=== PATIENT | male | born 1980 | race Two or more races ===

== ENCOUNTER 2024-09-16 03:16 | Emergency (ER) | payer MEDICAID, SELFPAY ==
[2024-09-16 03:19] VITALS: BP 131/88; PULSE 110; PULSE 118; RESP 15; RESP 20; TEMP 37.2; O2SAT 95; O2SAT 97
[2024-09-16 03:23] VITALS: BMI 30.1
--- NOTE | 2024-09-16 03:33 | PD.EDSEIZ ---
ED Seizures RME/HPI General Chief Complaint: Seizure Stated Complaint: SEIZURES Time Seen by Provider: 09/16/24 03:33 Arrival date/time: 09/16/24 03:16 RME / HPI RME / HPI Narrative: This section includes all my notes and documentations, including HPI, PE, and ED course. Danny Xie MD HPI: 44-year-old male here to be evaluated after a seizure at home just prior to arrival. Had seizure several years ago. No medications for seizures. No injury with the seizure today it occurred in bed. described foaming in the mouth, no responsiveness, and generalized shaking for several minutes. EMS reported postictal state. No other complaints. ROS: All negative except as documented in HPI. Physical Exam: General: In postictal state. Eyes: Conjunctivae and lids clear. EOMI. PERRL. ENT: No nasal congestion. Neck: Supple. No carotid bruit. No JVD. Heart: RRR. Lungs: No respiratory distress. Good air movement. No rhonchi, wheezing, rales. Abdomen: Soft and nontender. Legs: No clubbing, cyanosis, edema. Skin: Warm and dry. Neuro: Cranial Nerves II-XII grossly intact. No peripheral motor deficits. Musculoskeletal: All major joints and bones are not tender with no limited ROM. I reviewed all diagnostic test results. My interpretation of the EKG is sinus rhythm with no acute ST?T changes. Blood tests and urine tests unremarkable. Head CT pending. At this point, diagnoses include seizure. Treatment here included IV fluid and Keppra 2000 mg IV. When patient returned to normal baseline mental state, he complained of severe headache. Toradol and morphine ordered. At 6 AM on 09/16/24, the care of the patient was transferred to Dr. CORTEZ. Danny Xie MD Related Data Home Medications ?Medication ?Instructions ?Recorded ?Confirmed No Known Home Medications 03/31/18 03/31/18 Allergies Allergy/AdvReac Type Severity Reaction Status Date / Time No Known Allergies Allergy Verified 09/16/24 03:19 Course Quality Measures none Orders Category Date Time Status EKG (ED ONLY) *Do not use* NOW Care 09/16/24 03:34 Completed Saline [Insert IV] NOW Care 09/16/24 03:34 Active Straight [In and Out Catheter] X1 Care 09/16/24 03:[address] head/brain wo con Stat Exams 09/16/24 03:34 Ordered EKG (ED Only) Stat Exams 09/16/24 03:34 Draft Alcohol, Blood Medical Stat Lab 09/16/24 03:49 Completed CBC Stat Lab 09/16/24 03:49 Completed CMP [Comprehensive Metabolic Panel] Stat Lab 09/16/24 03:49 Completed Drug Screen,Urine Stat Lab 09/16/24 03:48 Completed Free T4 (Free Thyroxine) Stat Lab 09/16/24 03:49 Completed Magnesium Stat Lab 09/16/24 03:49 Completed TSH [Thyroid Stimulating Hormone] Stat Lab 09/16/24 03:49 Completed Troponin I Stat Lab 09/16/24 03:49 Completed UA, C/S IF [Urinalysis, C/S if Indicated] Stat Lab 09/16/24 03:48 Completed Ketorolac Inj [Toradol Inj] Med 09/16/24 04:33 Once 30 mg IVP X1 ONE Morphine Inj Med 09/16/24 04:33 Once 4 mg IVP X1 ONE Ondansetron Inj [Zofran Inj] Med 09/16/24 04:33 Once 4 mg IV X1 ONE Sodium Chloride 0.9% 1000 ml [Ns] 1,000 ml Med 09/16/24 03:34 Discontinued IV 999 mls/hr levETIRAcetam INJ [Keppra Inj] Med 09/16/24 03:45 Discontinued 2,000 mg IVP X1 ONE Vital Signs Vital signs: Vital Signs Temperature 99.0 F 09/16/24 03:19 Pulse Rate 110 H 09/16/24 03:19 Respiratory Rate 15 09/16/24 03:19 Blood Pressure 131/88 H 09/16/24 03:19 Pulse Oximetry (%) 95 09/16/24 03:19 Oxygen Delivery Method Room Air 09/16/24 03:19 Seizure Patient data External records reviewed:: None Clinical information provided by:: patient, EMS and spouse Social determinants that could affect healthcare access:: none Patient has the following chronic illnesses:: Seizures in the past How is presenting disease/condition affected by chronic disease/condition?: exacerbated by Evaluation data The following diagnostics were reviewed and interpreted by me:: lab results and EKG tracing(s) Lab and/or radiology exams considered but not ordered:: None Interpretation Summary: Complete diagnostics pending Medications / Prescriptions Medications or Prescriptions considered but not ordered:: None Medication administrations:: Medication Administration History Ketorolac Tromethamine (Ketorolac Inj 30 Mg/Ml Vial) 30 mg IVP X1 ONE Stop: 09/16/24 04:34 Morphine Sulfate (Morphine Sulf Inj 10 Mg/Ml Vial) 4 mg IVP X1 ONE Stop: 09/16/24 04:34 Ondansetron HCl (Ondansetron Inj 2 Mg/Ml Inj 2 Ml) 4 mg IV X1 ONE; Protocol Stop: 09/16/24 04:34 Discontinued Medications Sodium Chloride (Ns) 1,000 mls @ 999 mls/hr IV .Q1H1M ONE Stop: 09/16/24 04:34 Last Admin: 09/16/24 03:51 Dose: 999 mls/hr Documented By: IVÁN Levetiracetam (Levetiracetam Inj 100 Mg/Ml Vial 5ml) 2,000 mg IVP X1 ONE Stop: 09/16/24 03:46 Last Admin: 09/16/24 03:52 Dose: 2,000 mg Documented By: EE IV fluid and Keppra and Zofran and Toradol and morphine Consultations Consultation(s) initiated? (list below): No Diagnosis Seizure Differential Diagnosis: intractable seizure disorder, focal seizure, generalized seizure, new onset seizure, epileptic seizure and status epilepticus Most likely diagnosis given after review of the tests above:: Seizure Admission Indicated Admission indicated?: not indicated Explain why admission is indicated or not indicated:: Complete diagnostics pending Admission Request Was there a request for admission?: No Disposition Plan Disposition Plan: other (specify) (Care of the patient was transferred to Dr. CORTEZ.) Discharge Plan Prescriptions/Referrals Prescriptions/Med Rec: No Action No Known Home Medications Referrals: Marry Little PA-C [Primary Care Provider] - In 1 week Problem List Clinical Impression: Seizure Patient/Caregiver Discharge Instructions Print Language: Occitan
--- NOTE | 2024-09-16 03:34 | EKG_ITS ---
[facility] Test Date: 2024-09-16 Pat Name: DRU FUCHS Department: Room: - Gender: Male Intelligence Applications: : 1980 Requested By: Danny Lyles Order Number: [id number] Reading MD: Danny Lyles Measurements Intervals [place] Rate: 86 P: 64 GA: 153 QRS: 46 QRSD: 86 T: 40 QT: 349 QTc: 418 Interpretive Statements SINUS RHYTHM POSSIBLE RIGHT VENTRICULAR CONDUCTION DELAY [RSR (QR) IN V1/V2] No previous ECG available for comparison /store/S0/[id number].pdf
--- NOTE | 2024-09-16 03:34 | XR_ITS ---
Examination: CT brain head without contrast. 2-D sagittal coronal reconstructions Date and time of exam:September 16, 2024 at 0647 hours Comparison March 31, 2018 INDICATIONS: Seizure today with headache, history seizures CTDI: vol (mGy):52.3 DLP: (mGycm):1052 Technique: Multiple CT axial sections of the brain have been obtained, 5 mm slice thickness. Contrast has not been administered. 2-D sagittal, coronal reconstructions have been obtained Low dose protocols were performed. One or more of the following dose reduction techniques were used; automated exposure control, adjustment of the mA and/or KV according to patient size, use of iterative reconstruction technique. Findings: No significant ventricular enlargement. Again noted numerous subcentimeter cerebral calcifications Intra-axial or extra-axial hemorrhage density is not seen. No mass effect or midline shift Basal cisterns are not remarkable. Fourth ventricle is midline. Cranial vault intact. Impression: Negative for acute hemorrhage, mass effect or midline shift Again noted numerous subcentimeter cerebral calcifications, differential would include cysticercosis Consider repeat brain MRI follow-up, seizure protocol, to compare with the May 03, 2022 exam
[2024-09-16] MEDS: SODIUM CHLORIDE 0.9% 1000 ML 1,000 ML 999 ML IV (03:51)
[2024-09-16] MEDS: levETIRAcetam INJ 100 MG/ML VIAL 5ML 2000 MG IVP (03:52)
[2024-09-16 03:54] LABS: Basophils # (Auto) 0.1 Thou/mm3 (0.0-0.2); Basophils % (Auto) 1 % (0-2.5); Eosinophils # (Auto) 0.3 Thou/mm3 (0.0-0.5); Eosinophils % (Auto) 2 % (0-10); Hematocrit 48.1 % (41.0-53.0); Hemoglobin 16.9 g/dL (13.5-16.0); Immature Granulocytes % (Auto) 2 % (0-0); Immature Granulocytes Auto 0.25 Thou/mm3 (0.00-0.00); Lymphocytes # (Auto) 7.3 Thou/mm3 (1.0-4.8); Lymphocytes % (Auto) 53 % (10-50); Mean Corpuscular HGB Conc 35.1 g/dl (31.0-37.0); Mean Corpuscular Hemoglobin 29.5 pg (25.0-35.0); Mean Corpuscular Volume 84 fL (80-100); Monocytes # (Auto) 0.7 Thou/mm3 (0.0-0.8); Monocytes % (Auto) 5 % (0-12); Neutrophils # (Auto) 5.3 Thou/mm3 (1.8-7.7); Neutrophils % (Auto) 38 % (37-80); Nucleated Red Blood Cell % 0 /100 WBC (0); Platelet Count 209 Thou/mm3 (140-440); RDW Standard Deviation 39.7 fL (35.1-43.9); Red Blood Count 5.73 Miln/mm3 (4.50-5.90); White Blood Count 13.8 Thou/mm3 (3.8-10.6)
[2024-09-16 04:19] LABS: Collection Type, Urine Clean Catch
[2024-09-16 04:24] LABS: Bilirubin,Urine Negative (Negative); Blood,Urine Trace (Negative); Clarity,Urine Clear (Clear/Hazy); Color,Urine Colorless (Lt Yel-Yel); Culture Indicated,Urine Not Indicated; Glucose, Urine Negative (Negative); Ketones,Urine Negative (Negative); Leukocyte Esterase,Urine Negative (Negative); Nitrite,Urine Negative (Negative); Protein,Urine Trace (Neg - Trace); RBC,Urine 1 /hpf (0-3); Specific Gravity,Urine 1.012 (1.001-1.035); Squamous Epithelial Cell,Urine < 1 /hpf (0-5); Urobilinogen,Urine Negative mg/dL (0.0-1.0); WBC,Urine < 1 /hpf (0-5)
[2024-09-16 04:24] LABS: Alanine Aminotransferase 17 U/L (10-49); Albumin, Serum 4.7 gm/dL (3.5-5.0); Albumin/Globulin Ratio 1.5 (1.2-2.2); Alcohol, Blood Medical < 3.0 mg/dL (0-10.0); Alkaline Phosphatase 105 U/L (46-116); Anion Gap 20 (7-16); Aspartate Amino Transferase 25 U/L (0-34); BUN/Creatinine Ratio 11 Ratio (12-20); Bilirubin,Total 0.5 mg/dL (0.3-1.2); Blood Urea Nitrogen 12 mg/dL (9-23); Calcium 9.2 mg/dL (8.3-10.6); Calcium (Corrected) 9.2 mg/dL (8.5-10.1); Carbon Dioxide 15.8 mMol/L (20.0-31.0); Chloride 102 mMol/L (98-107); Creatinine (Component) 1.1 mg/dL (0.6-1.3); Estimated Creatinine Clearance 97.2 mL/min (>60); Free T4 (Free Thyroxine) 1.16 ng/dL (0.89-1.76); Globulin 3.1 gm/dL (2.3-3.5); Glucose 183 mg/dL (74-106); Magnesium 2.3 mg/dL (1.6-2.6); Osmolality,Calculated 280 (275-295); Potassium 3.6 mMol/L (3.4-5.1); Sodium 138 mMol/L (136-145); Thyroid Stimulating Hormone 4.02 uIU/mL (0.55-4.78); Total Protein 7.8 gm/dL (5.7-8.2); Troponin I < 0.002 ng/mL (0.0-0.045); eGFR > 60 See Note
[2024-09-16 04:31] LABS: Amphetamine/Methamp Scrn,U Negative (Negative); Barbiturate Screen,Urine Negative (Negative); Benzodiazepines Screen,Urine Negative (Negative); Benzoylecgonine Screen, Ur Negative (Negative); Fentanyl Screen,Urine Negative (Negative); Opiate Screen,Urine Negative (Negative); THC Screen,Urine Negative (Negative)
[2024-09-16] MEDS: KETOROLAC INJ 30 MG/ML VIAL IVP (04:50)
[2024-09-16] MEDS: ONDANSETRON INJ 2 MG/ML INJ 2 ML 4 MG IV (04:51)
[2024-09-16] MEDS: MORPHINE SULF INJ 10 MG/ML VIAL 4 MG IVP (04:51)
[2024-09-16 06:20] VITALS: BP 108/56; PULSE 79; RESP 12; TEMP 37; O2SAT 95
--- NOTE | 2024-09-16 06:26 | PD.EDADDENDU ---
Emergency Room Addendum <Susan Vazquez - Last Filed: 09/16/24 09:36> Addendum Narrative: 0600: Care assumed from Dr. Xie, the previous shift emergency physician. Past medical, surgical, social and family history reviewed. Vitals and home medications reviewed. I will assume the care of the patient at this time. Please refer to the emergency department record for history and examination from initial visit.? Physical exam by me shows patient under no acute distress at this time. 0832: Discussed test HPI, PMHx, lab, radiology results and/or management with Dr. Bruno. She recommends sending the prescription for keppra and follow as an outpatient. 0840: Patient states he is not going to take his seizure medications because he does not need them. He states he will exercise and that will take care of it. He states that in 2018, he took the medication but he states then he did not need it them. Refusing to take the recommendation not to drive, because he says he needs to work and will drive. Will do a DMV report. Diagnosis: -Seizure RADIOLOGY Procedure(s): CT head/brain wo con Accession Number(s): [id number] cc: Marry Little PA-C; Danny Xie MD; Goyo Castro MD~ Examination: CT brain head without contrast. 2-D sagittal coronal reconstructions Date and time of exam:September 16, 2024 at 0647 hours Comparison March 31, 2018 INDICATIONS: Seizure today with headache, history seizures CTDI: vol (mGy):52.3 DLP: (mGycm):1052 Technique: Multiple CT axial sections of the brain have been obtained, 5 mm slice thickness. Contrast has not been administered. 2-D sagittal, coronal reconstructions have been obtained Low dose protocols were performed. One or more of the following dose reduction techniques were used; automated exposure control, adjustment of the mA and/or KV according to patient size, use of iterative reconstruction technique. Findings: No significant ventricular enlargement. Again noted numerous subcentimeter cerebral calcifications Intra-axial or extra-axial hemorrhage density is not seen. No mass effect or midline shift Basal cisterns are not remarkable. Fourth ventricle is midline. Cranial vault intact. Impression: Negative for acute hemorrhage, mass effect or midline shift Again noted numerous subcentimeter cerebral calcifications, differential would include cysticercosis Consider repeat brain MRI follow-up, seizure protocol, to compare with the May 03, 2022 exam Dictated By: Goyo Castro MD <Priscilla Andino MD - Last Filed: 09/17/24 16:13> Addendum Narrative: 0600: Care assumed from Dr. Xie, the previous shift emergency physician. Past medical, surgical, social and family history reviewed. Vitals and home medications reviewed. I will assume the care of the patient at this time. Please refer to the emergency department record for history and examination from initial visit.? Physical exam by me shows patient under no acute distress at this time. 0832: Discussed test HPI, PMHx, lab, radiology results and/or management with Dr. Bruno. She recommends sending the prescription for keppra and follow as an outpatient. 0840: Patient states he is not going to take the prescribed seizure medications because he does not need them. He states he will exercise and that will take care of it. He states that in 2018, he took the medication but he states then he did not need it them. Refusing to take the recommendation not to drive, because he says he needs to work and will drive. DMV report will be sent. Diagnosis: -Seizure RADIOLOGY Procedure(s): CT head/brain wo con Accession Number(s): [id number] cc: Marry Little PA-C; Danny Xie MD; Goyo Castro MD~ Examination: CT brain head without contrast. 2-D sagittal coronal reconstructions Date and time of exam:September 16, 2024 at 0647 hours Comparison March 31, 2018 INDICATIONS: Seizure today with headache, history seizures CTDI: vol (mGy):52.3 DLP: (mGycm):1052 Technique: Multiple CT axial sections of the brain have been obtained, 5 mm slice thickness. Contrast has not been administered. 2-D sagittal, coronal reconstructions have been obtained Low dose protocols were performed. One or more of the following dose reduction techniques were used; automated exposure control, adjustment of the mA and/or KV according to patient size, use of iterative reconstruction technique. Findings: No significant ventricular enlargement. Again noted numerous subcentimeter cerebral calcifications Intra-axial or extra-axial hemorrhage density is not seen. No mass effect or midline shift Basal cisterns are not remarkable. Fourth ventricle is midline. Cranial vault intact. Impression: Negative for acute hemorrhage, mass effect or midline shift Again noted numerous subcentimeter cerebral calcifications, differential would include cysticercosis Consider repeat brain MRI follow-up, seizure protocol, to compare with the May 03, 2022 exam Dictated By: Goyo Castro MD
[2024-09-16 07:55] VITALS: BP 118/63; PULSE 74; RESP 16; TEMP 36.7; O2SAT 95
[2024-09-16 16:08] LABS: Path Review Blood Smear Sent to Pathologist
== END 2024-09-16 10:17 | disposition home or self-care (01) ==
PROVIDERS: Emergency Medicine; Emergency Provider Emergency Medicine; PCP Physician Assistant
DX: R56.9 Unspecified convulsions (principal)
CPT/HCPCS: 36415; 70450; 80053; 80307; 80320; 81001; 83735; 84439; 84443; 84484; 85025; 93005; 96361; 96374; 96375; 99285; J1885; J1953; J2270; J2405; J7030; G0480